=== PATIENT | female | born 1990 | race Caucasian/White ===

== ENCOUNTER → 2017-09-05 | Outpatient (CLI) | payer OTHER | LOC: M LRY 12:17 | DX: M54.41 Lumbago with sciatica, right side (principal) | CPT/HCPCS: 72110 ==

== ENCOUNTER 2017-11-09 17:51 | Emergency (ER) | payer OTHER ==
[2017-11-09] MEDS ORDERED: IBUPROFEN 800 MG TAB PO (18:00)
[2017-11-09] MEDS: ADACEL/BOOSTRIX VACCINE (DIPHTH/PERTUSS/ACELL/TETANUS)0.5ML SYR (90715) IM (18:16)
[2017-11-09] MEDS: NORCO, ANEXSIA 5/325MG TABLET (HYDROcodone/ACETAMINOPHEN) PO (18:16)
== END 2017-11-09 19:11 | disposition home or self-care (01) ==
LOC: M ED 17:51
DX: S60.221A Contusion of right hand, initial encounter (principal); S60.511A Abrasion of right hand, initial encounter; W23.0XXA Caught, crushed, jammed, or pinched between moving objects, initial encounter; Y92.098 Other place in other non-institutional residence as the place of occurrence of the external cause; Z88.8 Allergy status to other drugs, medicaments and biological substances; Z79.899 Other long term (current) drug therapy
CPT/HCPCS: 90715

== ENCOUNTER 2018-11-10 08:16 | Emergency (ER) | payer OTHER ==
[~2018-11-10] VITALS: Ht 170.2 cm; Wt 76.1 kg
[~2018-11-10 08:16] MED LIST: CHLO125TA PO; DOCU5LIQ PO; IBUP600T26 PO; MAPA500T17 PO; MOM30SS PO; PRENTAB66 PO; [UNRECOGNIZED DRUG - CODE] PO; [UNRECOGNIZED DRUG - REMARK] OU
[2018-11-10] MEDS ORDERED: diazePAM 5 MG TAB PO ONE (09:15)
[2018-11-10] MEDS ORDERED: methylPREDNISolone INJ 125 MG/2 ML VIAL (J2930) IM ONE (09:15)
[2018-11-10 10:24] VITALS: BP 162/74
[2018-11-10] MEDS ORDERED: PRED20TA PO (10:25)
[2018-11-10] MEDS ORDERED: CYCL10TA PO (10:25)
== END 2018-11-10 10:33 | disposition home or self-care (01) ==
LOC: M ED 08:16
DX: M54.31 Sciatica, right side (principal); M54.5 Low back pain; I10 Essential (primary) hypertension; Z88.8 Allergy status to other drugs, medicaments and biological substances
CPT/HCPCS: 96374; 99283; J2930

== ENCOUNTER → 2020-03-20 | Outpatient (CLI) | payer OTHER ==
[~2020-03-20] MED LIST changes: +CYCL-707 PO; +PRED20TA PO
[2020-03-20 13:01] LABS: BASO # 0.1 10^3/uL (0.0-0.2); BASO % 0.5 % (0.0-1.0); EOS # 0.3 10^3/uL (0.0-0.5); EOS % 2.9 % (0.0-3.0); HEMATOCRIT 46.3 % (36.0-47.0); HEMOGLOBIN 15.1 g/dl (12.0-15.5); LYMPH % 20.3 % (24.0-44.0); MEAN CORPUSCULAR HEMOGLOBIN 30.2 pg (27.0-33.0); MEAN CORPUSCULAR HGB CONC 32.6 g/dl (32.0-36.5); MEAN CORPUSCULAR VOLUME 92.6 fl (80.0-96.0); MONO # 0.6 10^3/uL (0.0-0.8); MONO % 6.1 % (0.0-5.0); NEUTROPHILS % 69.9 % (36.0-66.0); PLATELET COUNT, AUTOMATED 354 10^3/uL (150-450)
[2020-03-20 14:33] LABS: ALBUMIN 4.1 GM/DL (3.2-5.2); ALT/SGPT 20 U/L (12-78); BLOOD UREA NITROGEN 16 MG/DL (7-18); CARBON DIOXIDE LEVEL 26 MEQ/L (21-32); CHLORIDE LEVEL 104 MEQ/L (98-107); CREATININE FOR GFR 0.83 MG/DL (0.55-1.30); FREE T4 0.91 NG/DL (0.76-1.46); GLOMERULAR FILTRATION RATE > 60.0 (>60); GLUCOSE, FASTING 91 MG/DL (70-100); POTASSIUM SERUM 4.8 MEQ/L (3.5-5.1); SODIUM LEVEL 138 MEQ/L (136-145); TOTAL PROTEIN 7.5 GM/DL (6.4-8.2)
[2020-03-20 14:35] LABS: MALB URINE SIEMENS 17.6 MG/L; MAU/CREAT RATIO 14.9 MCG/MG (0.0-30.0)
== END ==
LOC: M WUC 09:21
PROVIDERS: ATTEND Nurse Practitioner Family
DX: I10 Essential (primary) hypertension (principal)

== ENCOUNTER → 2020-07-25 | Outpatient (CLI) | payer OTHER ==
--- NOTE | 2020-07-25 10:02 | ECGEPIP ---
[facility] Test Date: 2020-07-25 Pat Name: JUVE LANCASTER Department: Room: - Gender: Female [employer] Officer: kiana : 1990 Requested By: Binh Zaldivar Order Number: [id number] Reading MD: Becky Parsons Measurements Intervals [place] Rate: 63 P: 60 CA: 132 QRS: 40 QRSD: 94 T: 43 QT: 424 QTc: 433 Interpretive Statements Poor data quality, interpretation may be adversely affected Normal sinus rhythm POSSIBLE LVH SIMILAR TO 04/14/14 Electronically Signed on 07-25-2020 10:02:24 EDT by Becky Parsons
== END ==
LOC: M EKG 08:34
PROVIDERS: ATTEND Orthopaedic Surgery
DX: S83.242D Other tear of medial meniscus, current injury, left knee, subsequent encounter (principal); X58.XXXD Exposure to other specified factors, subsequent encounter

== ENCOUNTER 2020-11-14 18:51 | Emergency (ER) | payer OTHER ==
[~2020-11-14] VITALS: Ht 170.2 cm; Wt 89.5 kg
[2020-11-14 18:52] VITALS: BP 217/113
[2020-11-14] MEDS ORDERED: LISI10TA22 (19:07)
== END 2020-11-14 19:25 | disposition left against medical advice (07) ==
LOC: M ED 18:51
DX: Z53.21 Procedure and treatment not carried out due to patient leaving prior to being seen by health care provider (principal)

== ENCOUNTER → 2021-04-04 | Outpatient (CLI) | payer OTHER ==
[~2021-04-04] MED LIST changes: +LISI10TA22
== END ==
LOC: M RAD 13:59
PROVIDERS: ATTEND Nurse Practitioner Family
DX: R10.2 Pelvic and perineal pain (principal)